=== PATIENT | male | born 1975 | race Caucasian/White ===

== ENCOUNTER → 2019-12-28 | Outpatient (CLI) | payer BC ==
--- NOTE | 2019-12-28 12:23 | CT ---
EXAMINATION TYPE: CT chest wo con DATE OF EXAM: 12/28/2019 COMPARISON: Not presented HISTORY: solitary lung nodule CT DLP: 521 mGycm. Automated Exposure Control for Dose Reduction was Utilized. TECHNIQUE: CT scan of the thorax is performed without IV contrast. FINDINGS: Lack of intravenous contrast could compromise sensitivity. LUNGS: The lungs are grossly clear, there is no concerning parenchymal mass or nodule identified. T here is no pleural effusion or pneumothorax seen. The tracheobronchial tree is patent. MEDIASTINUM: Lack of IV contrast is noted to limit evaluation for mediastinal and especially hilar ad enopathy. There are no definitive greater than 1 cm hilar or mediastinal lymph nodes. No cardiomega ly or pericardial effusion is seen. OTHER: Aorta shows associated calcification. Sclerotic focus in the upper thoracic vertebral body lik edison represents bone island in the posterior aspect of T3. Thoracic spondylosis is present. IMPRESSION: Nonspecific findings above. No evident lung mass.
== END | disposition home or self-care (01) ==
LOC: RADCTMAIN 07:12
PROVIDERS: ATTEND Family Medicine
DX: R91.1 Solitary pulmonary nodule (principal)
CPT/HCPCS: 71250

== ENCOUNTER 2021-06-01 16:25 | Inpatient (IN) | payer OTHER, BC ==
[2021-06-01 16:31] LABS: Glucose,Whole Blood 152 mg/dL (75-99)
[2021-06-01] MEDS ORDERED: SODIUM CHLORIDE 0.9% 1,000 ML IV STA (16:32)
[2021-06-01] MEDS ORDERED: DIPH,PERTUS(ACELL)TETVAC-LF 0.5 ML VIAL IM ONE (16:33)
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
[2021-06-01] MEDS ORDERED: RX INFO: IV CONTRAST WAS GIVEN 1 EACH MISC MISCELLANE PRN (16:55)
[2021-06-01 16:59] LABS: Basophils # (A) 0.1 k/uL (0-0.2); Basophils % (A) 1 %; Eosinophils # (A) 0.3 k/uL (0-0.7); Eosinophils % (A) 2 %; HCT 41.3 % (39.0-53.0); HGB 14.9 gm/dL (13.0-17.5); Lymphocytes % (A) 16 %; MCHC 35.9 g/dL (31.0-37.0); MCV 86.4 fL (80.0-100.0); Mean Platelet Volume 8.4; Monocytes # (A) 0.7 k/uL (0-1.0); Monocytes % (A) 6 %; Neutrophils # (A) 9.5 k/uL (1.3-7.7); Neutrophils % (A) 76 %; Platelet Count 266 k/uL (150-450); RBC 4.79 m/uL (4.30-5.90); WBC 12.6 k/uL (3.8-10.6)
--- NOTE | 2021-06-01 17:05 | XR ---
EXAMINATION TYPE: XR pelvis AP view DATE OF EXAM: 06/01/2021 COMPARISON: NONE HISTORY: Pain trauma. TECHNIQUE: Single view FINDINGS: Pelvic ring is intact. Proximal femurs and hip joints are intact. There is mild acetabular spurring. Sacroiliac joints are intact. IMPRESSION: No acute abnormality the pelvis.
--- NOTE | 2021-06-01 17:05 | XR ---
EXAMINATION TYPE: XR chest 1V portable DATE OF EXAM: 06/01/2021 COMPARISON: NONE HISTORY: Trauma. Pain. TECHNIQUE: Single view FINDINGS: Heart and mediastinum are normal. Lungs are clear. Diaphragm is normal. Bony thorax is inta ct. There are chest leads. IMPRESSION: Normal chest.
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
[2021-06-01 17:11] LABS: ALT 31 U/L (4-49); AST 41 U/L (17-59); African American GFR (CKD) >90 (>60 ml/min/1.73 sqM); Albumin 4.3 g/dL (3.5-5.0); Alcohol 27 mg/dL; Alkaline Phosphatase 39 U/L (38-126); Anion Gap 12 mmol/L; Blood Urea Nitrogen 13 mg/dL (9-20); Calcium 9.1 mg/dL (8.4-10.2); Carbon Dioxide 23 mmol/L (22-30); Chloride 104 mmol/L (98-107); Glucose 166 mg/dL (74-99); Non-African American GFR(CKD) >90 (>60 ml/min/1.73 sqM); Potassium 3.8 mmol/L (3.5-5.1); Sodium 139 mmol/L (137-145); Total Bilirubin 0.3 mg/dL (0.2-1.3); Total Protein 6.5 g/dL (6.3-8.2)
[2021-06-01 17:16] LABS: INR 0.9 (<1.2)
[2021-06-01] MEDS ORDERED: MORPHINE SULFATE 4 MG/ML SYRINGE IVP STA ×2 (17:20→19:05)
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
[2021-06-01] MEDS ORDERED: MORPHINE SULFATE 2 MG/ML SYRINGE IVP STA (19:05)
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
--- NOTE | 2021-06-01 19:17 | XR ---
EXAMINATION TYPE: XR wrist complete LT DATE OF EXAM: 06/01/2021 COMPARISON: NONE HISTORY: Pain TECHNIQUE: 4 views FINDINGS: Carpal bones are intact. Intercarpal joint spaces are normal. Distal radius and ulna appear intact. IMPRESSION: Negative left wrist exam. Scaphoid appears normal.
--- NOTE | 2021-06-01 19:18 | XR ---
EXAMINATION TYPE: XR tibia fibula LT DATE OF EXAM: 06/01/2021 COMPARISON: NONE HISTORY: Pain TECHNIQUE: 4 views FINDINGS: Tibia and fibula appear intact. I see no fracture nor dislocation. Ankle mortise is anatomi c. Knee joint spaces are normal. IMPRESSION: No fracture seen.
--- NOTE | 2021-06-01 19:18 | XR ---
EXAMINATION TYPE: XR femur LT DATE OF EXAM: 06/01/2021 COMPARISON: NONE HISTORY: Pain TECHNIQUE: 4 views FINDINGS: There is acetabular spurring. Knee joint is intact. There is spurring on the patella. There is no sign of knee joint effusion. There is evidence for laceration of the soft tissues over the lat eral femoral condyle. IMPRESSION: Laceration deformity. No fracture seen.
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
--- NOTE | 2021-06-01 19:22 | XR ---
EXAMINATION TYPE: XR humerus LT DATE OF EXAM: 06/01/2021 COMPARISON: NONE HISTORY: Pain TECHNIQUE: 2 views FINDINGS: I see no fracture nor dislocation. Glenohumeral joint is anatomic. IMPRESSION: Negative left humerus exam.
--- NOTE | 2021-06-01 19:23 | XR ---
EXAMINATION TYPE: XR shoulder complete LT DATE OF EXAM: 06/01/2021 COMPARISON: NONE HISTORY: Pain TECHNIQUE: 3 views FINDINGS: The glenohumeral joint is intact. Scapula is intact. There is comminuted mid shaft fracture of the left clavicle with 50% inferior displacement of the lateral fragment. There is nondisplaced f racture left sixth rib. IMPRESSION: Clavicle fracture. Normal glenohumeral joint.
[2021-06-01] MEDS ORDERED: PROPOFOL 10 MG/ML 20 ML VIAL IV ONE (19:25)
[2021-06-01] MEDS ORDERED: LIDOCAINE 2% INJ 20 MG/ML (20 ML MDV) SQ STA (19:49)
[2021-06-01] MEDS: KETAMINE 10 MG/ML 20 ML VIAL IV ONE (20:02)
[2021-06-01] MEDS ORDERED: HYDROmorphone 1 MG/ML 1 ML SYRINGE IVP STA (20:41)
[2021-06-01] MEDS ORDERED: NALOXONE 0.4 MG/ML 1 ML VIAL IV PRN (20:42)
--- NOTE | 2021-06-01 21:07 | XR ---
EXAMINATION TYPE: XR chest 1V portable DATE OF EXAM: 06/01/2021 COMPARISON: Today HISTORY: Short of breath TECHNIQUE: FINDINGS: There is left-sided chest tube. I see no pneumothorax. Trachea is midline. Lungs are clear of consolidation. IMPRESSION: No pneumothorax seen.
[2021-06-01] MEDS: HYDROmorphone 0.5 MG/0.5 ML SYRINGE IVP PRN (21:24)
[2021-06-01] MEDS ORDERED: HYDROmorphone 0.5 MG/0.5 ML SYRINGE IVP STA ×2 (21:35→22:40)
[2021-06-01] MEDS ORDERED: VANCOMYCIN IV PER PHARMACY 1 EACH MISC MISCELLANE PRN (21:42)
[2021-06-01] MEDS ORDERED: VANCOMYCIN 1,500 MG in SODIUM CHLORIDE 0.9% 250 ML IVPB ONE (22:00)
[2021-06-02] MEDS: HYDROcodone/APAP 5-325MG 1 EACH TAB PO PRN ×6 (00:48→21:52)
[2021-06-02] MEDS: KETOROLAC 15 MG/ML 1 ML VIAL IVP PRN ×4 (00:48→23:03)
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
[2021-06-02] MEDS: HYDROmorphone 0.5 MG/0.5 ML SYRINGE IVP PRN ×6 (05:43→23:56)
[2021-06-02 06:18] LABS: Appearance,Urine Clear (Clear); Bacteria,Urine Rare /hpf; Bilirubin,Urine Negative (Negative); Blood,Urine Negative (Negative); Color,Urine Yellow; Glucose,Urine (UA) Negative (Negative); Ketones,Urine Trace (Negative); Leukocyte Esterase,Urine Moderate (Negative); Mucus,Urine Occasional /hpf; Nitrite,Urine Negative (Negative); PH, Urine 5.5 (5.0-8.0); Protein,Urine Negative (Negative); RBC,Urine 1 /hpf (0-5); Specific Gravity,Urine 1.024 (1.001-1.035); Squamous Epithelial Cell,Urine 5 /hpf (0-4); Urobilinogen,Urine <2.0 mg/dL (<2.0); WBC,Urine 4 /hpf (0-5)
[2021-06-02 06:42] LABS: Amphetamine Screen,Urine Not Detected (NotDetected); Barbiturate Screen,Urine Not Detected (NotDetected); Benzodiazepines Screen,Urine Not Detected (NotDetected); Cocaine Screen,Urine Detected (NotDetected); Methadone Screen, Urine Not Detected (NotDetected); Opiate Screen,Urine Detected (NotDetected); Oxycodone Screen, Urine Not Detected (NotDetected); Phencyclidine Screen,Urine Not Detected (NotDetected); Tricyclic Antidepressant,Urine Not Detected (NotDetected); Urn Cannabinoid Scrn Not Detected (NotDetected)
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
[2021-06-02 08:28] LABS: ALT 32 U/L (4-49); African American GFR (CKD) >90 (>60 ml/min/1.73 sqM); Anion Gap 11 mmol/L; Blood Urea Nitrogen 14 mg/dL (9-20); Carbon Dioxide 19 mmol/L (22-30); Chloride 107 mmol/L (98-107); Glucose 127 mg/dL (74-99); Non-African American GFR(CKD) >90 (>60 ml/min/1.73 sqM); Sodium 137 mmol/L (137-145); Total Bilirubin 0.7 mg/dL (0.2-1.3); Total Protein 6.2 g/dL (6.3-8.2)
[2021-06-02 08:29] LABS: AST 53 U/L (17-59); Alkaline Phosphatase 29 U/L (38-126); Potassium 4.3 mmol/L (3.5-5.1)
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
--- NOTE | 2021-06-02 09:20 | XR ---
EXAMINATION TYPE: XR chest 1V portable DATE OF EXAM: 06/02/2021 COMPARISON: 06/01/2021 INDICATION: Pneumothorax TECHNIQUE: Single frontal view of the chest is obtained. FINDINGS: The heart size is stable in size. The pulmonary vasculature is normal. Left-sided chest tube is present. Pneumothorax is not evident. IMPRESSION: 1. No pneumothorax. Left-sided chest tube remains in position.
[2021-06-02 09:41] LABS: Basophils # (A) 0.1 k/uL (0-0.2); Basophils % (A) 0 %; Eosinophils # (A) 0.4 k/uL (0-0.7); Eosinophils % (A) 3 %; HCT 39.6 % (39.0-53.0); HGB 13.8 gm/dL (13.0-17.5); Lymphocytes # (A) 2.4 k/uL (1.0-4.8); Lymphocytes % (A) 16 %; MCH 30.8 pg (25.0-35.0); MCHC 34.7 g/dL (31.0-37.0); MCV 88.8 fL (80.0-100.0); Mean Platelet Volume 8.1; Monocytes # (A) 0.8 k/uL (0-1.0); Monocytes % (A) 5 %; Neutrophils # (A) 11.5 k/uL (1.3-7.7); Neutrophils % (A) 75 %; Platelet Count 207 k/uL (150-450); RBC 4.47 m/uL (4.30-5.90); RDW 12.2 % (11.5-15.5); WBC 15.3 k/uL (3.8-10.6)
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
[2021-06-02 16:45] LABS: Chol/HDL Ratio 5.03; LDL Cholesterol,Calculated 109.6 mg/dL (0.0-131.0); VLDL Calculation 27.4 mg/dL (5.00-40.00)
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
[2021-06-02 22:26] LABS: Hemoglobin A1C 6.8 % (4.0-6.0)
--- NOTE | 2021-06-03 | US ---
EXAMINATION TYPE: US carotid duplex BILAT DATE OF EXAM: 06/02/2021 COMPARISON: NONE CLINICAL HISTORY: Remote CVA, rule out stenosis, dissection. Exam done portable. EXAM MEASUREMENTS: RIGHT: Peak Systolic Velocity (PSV) cm/sec ----- Right CCA: 66.4 ----- Right ICA: 74.4 ----- Right ECA: 83.0 ICA/CCA ratio: 1.1 RIGHT: End Diastole cm/sec ----- Right CCA: 18.3 ----- Right ICA: 37.9 ----- Right ECA: 14.9 LEFT: Peak Systolic Velocity (PSV) cm/sec ----- Left CCA: 104.8 ----- Left ICA: 68.1 ----- Left ECA: 128.2 ICA/CCA ratio: 0.6 LEFT: End Diastole cm/sec ----- Left CCA: 27.7 ----- Left ICA: 34.7 ----- Left ECA: 19.3 VERTEBRALS (direction of flow): Right Vertebral: Antegrade Left Vertebral: Antegrade Rhythm: Normal No significant stenosis. IMPRESSION: There is antegrade flow in the vertebral arteries. The images and measurements suggest l ess than 15% stenosis in both internal carotid arteries. Criteria for Assigning % of Stenosis / Diameter reduction (Estimation based on the indirect measurements of the internal carotid artery velocities (ICA PSV). 1. Normal (no stenosis)=ICA PSV < 125 cm/s: ratio < 2.0: ICA EDV<40 cm/s. 2. Less than 50% stenosis=ICA PSV < 125 cm/s: ratio < 2.0: ICA EDV<40 cm/s. 3. 50 to 69% stenosis=ICA PSV of 125 to 230 cm/s: ration 2.0 ? 4.0: ICA EDV 40-100 cm/s. 4. Greater than 70% stenosis to near occlusion= ICA PSV > 230 cm/s: ratio > 4.0: ICA EDV > 100 cm/s. 5. Near occlusion= ICA PSV velocities may be low or undetectable: variable ratio and ICA EDV. 6. Total occlusion=unable to detect flow.
[2021-06-03] MEDS: HYDROcodone/APAP 5-325MG 1 EACH TAB PO PRN ×5 (02:12→23:52)
[2021-06-03] MEDS: HYDROmorphone 0.5 MG/0.5 ML SYRINGE IVP PRN ×5 (02:59→21:16)
[2021-06-03] MEDS: KETOROLAC 15 MG/ML 1 ML VIAL IVP PRN ×3 (07:02→20:44)
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
[2021-06-03 08:11] LABS: HCT 37.2 % (39.0-53.0); MCH 31.1 pg (25.0-35.0); MCHC 34.9 g/dL (31.0-37.0); MCV 89.1 fL (80.0-100.0); Mean Platelet Volume 8.7; Platelet Count 171 k/uL (150-450); RBC 4.18 m/uL (4.30-5.90); WBC 12.2 k/uL (3.8-10.6)
[2021-06-03 08:22] LABS: African American GFR (CKD) >90 (>60 ml/min/1.73 sqM); Anion Gap 4 mmol/L; Blood Urea Nitrogen 13 mg/dL (9-20); Calcium 8.6 mg/dL (8.4-10.2); Carbon Dioxide 28 mmol/L (22-30); Chloride 103 mmol/L (98-107); Glucose 193 mg/dL (74-99); Non-African American GFR(CKD) >90 (>60 ml/min/1.73 sqM); Potassium 4.2 mmol/L (3.5-5.1); Sodium 135 mmol/L (137-145)
--- NOTE | 2021-06-03 08:25 | XR ---
EXAMINATION TYPE: XR chest 1V portable DATE OF EXAM: 06/03/2021 COMPARISON: 06/02/2021 HISTORY: Pneumothorax TECHNIQUE: Single frontal view of the chest is obtained. FINDINGS: There is no focal air space opacity, pleural effusion, or pneumothorax seen. The cardiac silhouette size is within normal limits. The osseous structures are intact. IMPRESSION: No acute process.
[2021-06-03] MEDS: ATORVASTATIN 40 MG TAB PO SCH (08:50)
[2021-06-03] MEDS: ASPIRIN 81 MG PO SCH (08:50)
--- NOTE | 2021-06-03 10:20 | MR ---
EXAMINATION TYPE: MR brain wo/w con DATE OF EXAM: 06/03/2021 COMPARISON: CT brain 06/01/2021 HISTORY: Abnormal CT head, rule out CVA versus mass CONTRAST: Performed utilizing 7.5 mL intravenous Gadavist gadolinium contrast. TECHNIQUE: Multiplanar, multiecho imaging on a 3.0 Jana magnet is performed through the brain. Stud y is performed within 24 hours of arrival to the hospital. The craniovertebral junction is normal. The pituitary is normal. Optic chiasm appears normal Diffusion-weighted imaging is performed. No abnormal hyperintensity is present to suggest an acute i ntracranial infarct or acute ischemic change. There appears to be a lacunar infarct adjacent to the right lateral ventricle within the rogel radia ta. No acute infarcts are evident. There is some minimal chronic periventricular white matter hyperin tensity may be related to some mild white matter ischemic-type change. Ventricles and sulci are appropriate for the patient age. No suspicious enhancement is evident. IMPRESSIONS: 1. Old lacunar infarct right periventricular white matter. 2. No acute intracranial process.
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
[2021-06-03 11:35] LABS: Glucose,Whole Blood 147 mg/dL (75-99)
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
[2021-06-03] MEDS: INSULIN ASPART (NovoLOG) 100 UNIT/ML VIAL SQ SCH ×2 (12:00→17:53)
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
--- NOTE | 2021-06-03 13:58 | XR ---
EXAMINATION TYPE: XR chest 1V portable DATE OF EXAM: 06/03/2021 COMPARISON: 06/03/2021 HISTORY: Pneumothorax TECHNIQUE: Single frontal view of the chest is obtained. FINDINGS: Images degraded by motion. There is new bibasilar airspace disease. No definite pneumothorax. Cardiac silhouette is unchanged. There is a left clavicular fracture. IMPRESSION: New bibasilar airspace disease. Left clavicular fracture.
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
[2021-06-03 17:03] LABS: Glucose,Whole Blood 180 mg/dL (75-99)
[2021-06-03 20:30] LABS: Glucose,Whole Blood 105 mg/dL (75-99)
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
[2021-06-04] MEDS: HYDROmorphone 0.5 MG/0.5 ML SYRINGE IVP PRN ×4 (00:55→20:57)
[2021-06-04] MEDS: KETOROLAC 15 MG/ML 1 ML VIAL IVP PRN (02:39)
[2021-06-04] MEDS: HYDROcodone/APAP 5-325MG 1 EACH TAB PO PRN ×3 (03:54→22:57)
[2021-06-04 06:25] LABS: Glucose,Whole Blood 135 mg/dL (75-99)
[2021-06-04] MEDS: INSULIN ASPART (NovoLOG) 100 UNIT/ML VIAL SQ SCH ×3 (06:29→18:03)
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
[2021-06-04] MEDS: ASPIRIN 81 MG PO SCH (08:10)
[2021-06-04] MEDS: ATORVASTATIN 40 MG TAB PO SCH (08:10)
--- NOTE | 2021-06-04 08:19 | XR ---
EXAMINATION TYPE: XR chest 1V portable DATE OF EXAM: 06/04/2021 COMPARISON: 06/03/2021 HISTORY: Pneumothorax TECHNIQUE: Single frontal view of the chest is obtained. FINDINGS: There is no focal air space opacity, pleural effusion, or pneumothorax seen. The cardiac silhouette size is within normal limits. The osseous structures are intact. IMPRESSION: No acute process. Specifically, no definite pneumothorax is seen.
[2021-06-04 10:13] LABS: Basophils % (A) 0 %; Eosinophils # (A) 0.4 k/uL (0-0.7); Eosinophils % (A) 4 %; HCT 37.4 % (39.0-53.0); HGB 12.7 gm/dL (13.0-17.5); Lymphocytes # (A) 1.4 k/uL (1.0-4.8); Lymphocytes % (A) 14 %; MCH 30.8 pg (25.0-35.0); MCHC 33.9 g/dL (31.0-37.0); MCV 90.8 fL (80.0-100.0); Mean Platelet Volume 9.4; Monocytes # (A) 0.7 k/uL (0-1.0); Monocytes % (A) 7 %; Neutrophils % (A) 73 %; Platelet Count 196 k/uL (150-450); RBC 4.11 m/uL (4.30-5.90); RDW 11.9 % (11.5-15.5); WBC 9.6 k/uL (3.8-10.6)
[2021-06-04 11:23] LABS: Glucose,Whole Blood 127 mg/dL (75-99)
[2021-06-04] MEDS: KETOROLAC 15 MG/ML 1 ML VIAL IVP SCH ×2 (11:52→17:54)
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
[2021-06-04] MEDS: COLLAGENASE 250 UNIT/GM OINTMENT 30 GM TUBE TOPICAL SCH (13:44)
[2021-06-04] MEDS: BACITRACIN ZINC 500 UNIT/GM OINT 28.4 GM TUBE TOPICAL SCH (13:44)
[2021-06-04] MEDS: PETROLAT,WHITE/LAN/8-HYDROXYQU 227 GM OINT TOPICAL SCH (13:44)
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
[2021-06-04 16:42] LABS: Glucose,Whole Blood 123 mg/dL (75-99)
[2021-06-04 20:34] LABS: Glucose,Whole Blood 126 mg/dL (75-99)
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
[2021-06-05] MEDS: KETOROLAC 15 MG/ML 1 ML VIAL IVP SCH ×3 (01:11→15:14)
[2021-06-05] MEDS: KETAMINE 10 MG/ML 20 ML VIAL IV ONE (03:54)
[2021-06-05 06:33] LABS: Glucose,Whole Blood 133 mg/dL (75-99)
[2021-06-05] MEDS: INSULIN ASPART (NovoLOG) 100 UNIT/ML VIAL SQ SCH ×2 (06:34→12:31)
[2021-06-05 08:00] LABS: HCT 36.8 % (39.0-53.0); HGB 12.5 gm/dL (13.0-17.5); MCH 30.7 pg (25.0-35.0); MCV 90.3 fL (80.0-100.0); Mean Platelet Volume 8.6; Platelet Count 247 k/uL (150-450); RBC 4.08 m/uL (4.30-5.90); RDW 11.9 % (11.5-15.5); WBC 9.8 k/uL (3.8-10.6)
[2021-06-05 08:09] LABS: African American GFR (CKD) >90 (>60 ml/min/1.73 sqM); Anion Gap 8 mmol/L; Blood Urea Nitrogen 14 mg/dL (9-20); Calcium 9.2 mg/dL (8.4-10.2); Carbon Dioxide 28 mmol/L (22-30); Chloride 103 mmol/L (98-107); Glucose 173 mg/dL (74-99); Non-African American GFR(CKD) >90 (>60 ml/min/1.73 sqM); Potassium 4.4 mmol/L (3.5-5.1); Sodium 139 mmol/L (137-145)
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
[2021-06-05] MEDS: ASPIRIN 81 MG PO SCH (08:45)
[2021-06-05] MEDS: ATORVASTATIN 40 MG TAB PO SCH (08:45)
[2021-06-05] MEDS: BACITRACIN ZINC 500 UNIT/GM OINT 28.4 GM TUBE TOPICAL SCH (08:45)
[2021-06-05] MEDS: PETROLAT,WHITE/LAN/8-HYDROXYQU 227 GM OINT TOPICAL SCH (08:46)
[2021-06-05] MEDS: COLLAGENASE 250 UNIT/GM OINTMENT 30 GM TUBE TOPICAL SCH (08:46)
[2021-06-05] MEDS: HYDROcodone/APAP 5-325MG 1 EACH TAB PO PRN ×2 (10:36→15:17)
[2021-06-05 11:34] LABS: Glucose,Whole Blood 133 mg/dL (75-99)
[2021-06-05 12:02] VITALS: BP 128/80; PULSE 77; RESP 16; TEMP 97.6
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
[2021-06-05 14:01] VITALS: BMI 27.1
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
== END 2021-06-05 15:42 | disposition home health service (06) | DRG 200 ==
LOC: EC 16:25 → 3SCARD 20:46 → 3NCARDOBS 06-04 22:48 → 3SCARD 06-04 22:48
PROVIDERS: ADMIT Surgery Plastic and Reconstructive Surgery; ATTEND Surgery Plastic and Reconstructive Surgery
PROC: 0W9B30Z Drainage of Left Pleural Cavity with Drainage Device, Percutaneous Approach (ICD-10-PCS; principal; 2021-06-01)
DX: S27.0XXA Traumatic pneumothorax, initial encounter (principal); S22.42XA Multiple fractures of ribs, left side, initial encounter for closed fracture; D83.9 Common variable immunodeficiency, unspecified; J98.11 Atelectasis; L97.922 Non-pressure chronic ulcer of unspecified part of left lower leg with fat layer exposed; L03.113 Cellulitis of right upper limb; L97.429 Non-pressure chronic ulcer of left heel and midfoot with unspecified severity; L03.114 Cellulitis of left upper limb; S42.002A Fracture of unspecified part of left clavicle, initial encounter for closed fracture; I10 Essential (primary) hypertension; S42.102A Fracture of unspecified part of scapula, left shoulder, initial encounter for closed fracture; V29.9XXA Motorcycle rider (driver) (passenger) injured in unspecified traffic accident, initial encounter; Y92.410 Unspecified street and highway as the place of occurrence of the external cause; F17.200 Nicotine dependence, unspecified, uncomplicated; Z80.42 Family history of malignant neoplasm of prostate; M19.90 Unspecified osteoarthritis, unspecified site; Z86.73 Personal history of transient ischemic attack (TIA), and cerebral infarction without residual deficits; F14.10 Cocaine abuse, uncomplicated; F10.20 Alcohol dependence, uncomplicated; L98.492 Non-pressure chronic ulcer of skin of other sites with fat layer exposed; R73.9 Hyperglycemia, unspecified; S41.111A Laceration without foreign body of right upper arm, initial encounter; R73.03 Prediabetes; H53.40 Unspecified visual field defects; I45.10 Unspecified right bundle-branch block; L98.491 Non-pressure chronic ulcer of skin of other sites limited to breakdown of skin; S51.812A Laceration without foreign body of left forearm, initial encounter
CPT/HCPCS: 12002; 31500; 36415; 70450; 70553; 71045; 71046; 71260; 72125; 72170; 80048; 80053; 80061; 80306; 80320; 81001; 82784; 83036; 84484; 85025; 85027; 85610; 85730; 86850; 86900; 86901; 90471; 90715; 93005; 93306; 93880; 96361; 96372; 96374; 96376; 99291